=== PATIENT | male | born 1940 | race Caucasian/White ===

== ENCOUNTER 2020-05-02 11:52 | Emergency (ER) | payer OTHER ==
[~2020-05-02] VITALS: Ht 182.9 cm; Wt 78.5 kg
[~2020-05-02 11:52] MED LIST: LISHYD2012 PO
[2020-05-02 13:21] LABS: BASOPHILS ABSOLUTE AUTO 0.08 K/mm3 (0.00-0.23); BASOPHILS PERCENT AUTO 1 % (0-2); EOSINOPHILS PERCENT AUTO 5 % (0-6); Hematocrit 43.3 % (37.0-53.0); Hemoglobin 14.3 g/dL (13.5-17.5); IMMATURE GRAN ABSOLUTE AUTO 0.02 K/mm3 (0.00-0.10); IMMATURE GRAN PERCENT AUTO 0 % (0-1); LYMPHOCYTES ABSOLUTE AUTO 1.86 K/mm3 (0.84-5.20); LYMPHOCYTES PERCENT AUTO 30 % (21-46); MONOCYTES ABSOLUTE AUTO 0.52 K/mm3 (0.16-1.47); MONOCYTES PERCENT AUTO 9 % (4-13); Mean Corpuscular HGB 30.2 pg (26.0-34.0); Mean Corpuscular Volume 92 fL (80-100); Mean Platelet Volume 10.2 fL (9.1-12.4); NEUTROPHILS ABSOLUTE AUTO 3.34 K/mm3 (1.96-9.15); NEUTROPHILS PERCENT AUTO 55 % (41-73); Platelet Count 196 K/mm3 (150-400); RDW Coefficient Variation 12.5 % (11.7-14.2); RDW Standard Deviation 42.3 fL (35.1-46.3); Red Blood Cell Count 4.73 M/mm3 (4.30-5.90); White Blood Cell Count 6.12 K/mm3 (4.00-11.30)
[2020-05-02 13:37] LABS: Alanine Aminotransfer (ALT/SGP 15 U/L (12-78); Albumin, Blood 3.4 g/dL (3.4-5.0); Alk Phos 86 U/L (50-136); Anion Gap 4 mmol/L (6-16); Aspartate Aminotrans (AST/SGOT 17 U/L (12-37); Bilirubin, Total 0.4 mg/dL (0.1-1.0); Blood Urea Nitrogen 25 mg/dL (8-24); Bun/Creatinine Ratio 24.8 (12.0-20.0); CO2, Blood 27 mmol/L (21-32); Calcium, Blood 9.1 mg/dL (8.5-10.1); Chloride, Blood 111 mmol/L (98-108); Creatinine, Blood 1.01 mg/dL (0.60-1.20); Globulin, Blood 3.3 g/dL (2.2-4.0); Glomerular Filtration Rate >60 (60-); Glucose, Blood 83 mg/dL (70-99); Potassium, Blood 4.2 mmol/L (3.5-5.5); Sodium, Blood 142 mmol/L (136-145); Total Protein, Blood 6.7 g/dL (6.4-8.2); Troponin I <0.015 ng/mL (0.000-0.040)
== END 2020-05-02 15:17 | disposition home or self-care (01) ==
LOC: ER 11:52
PROVIDERS: Emergency Medicine
DX: R07.9 Chest pain, unspecified (principal); R10.31 Right lower quadrant pain; M25.512 Pain in left shoulder; M25.511 Pain in right shoulder; I10 Essential (primary) hypertension
CPT/HCPCS: 71046; 80053; 83880; 84484; 85025; 93005; 93010; 99285-25

== ENCOUNTER 2020-08-12 06:07 | Day surgery (SDC) | payer OTHER ==
[~2020-08-12] VITALS: Ht 182.9 cm; Wt 79.5 kg
[~2020-08-12 06:07] MED LIST changes: +ASPI81CH PO; +Crestor40 MG PO; +MELO7.5 PO; +Prinivil10 MG PO; +VITAMIN D310 MC5 PO
[2020-08-12] MEDS ORDERED: ELIQUIS5 MG PO (06:45)
--- NOTE | 2020-08-12 12:33 | NUR ---
PT RETURNED FROM 2 VIEW CHEST X RAYS IN RADIOLOGY, CONDITION STABLE. PT DENIES PAIN OR DISCOMFORT.
--- NOTE | 2020-08-12 14:13 | NUR ---
ACETAMINOPHEN 325 MG PO GIVEN FOR 5/10 INCISIONAL PAIN.
--- NOTE | 2020-08-12 14:45 | NUR ---
DISCHARGE INSTRUCTION GIVEN WITH VERBAL AND WRITTEN UNDERSTANDING.
--- NOTE | 2020-08-12 15:55 | NUR ---
VANCOMYCIN INFUSED. IV REMOVED INTACT. 2X2,COBAN AND MANUAL PRESSURE HELD.
--- NOTE | 2020-08-12 16:00 | NUR ---
DRESSED FOR DISCHARGE. SLING APPLIED TO LEFT ARM. DISCHARGED HOME VIA WHEELCHAIR. DRIVING. DISCHARGE INSTRUCTIONS GIVEN TO WELL. PATIENT APPEARS CONFUSED BY REPEATING QUESTIONS THROUGHOUT THE DAY AND FORGETTING PAIN MEDICINE WAS GIVEN.
== END 2020-08-12 16:00 | disposition home or self-care (01) ==
LOC: MHTC 06:07
DX: I49.5 Sick sinus syndrome (principal); I48.0 Paroxysmal atrial fibrillation; I44.1 Atrioventricular block, second degree; I10 Essential (primary) hypertension; I73.9 Peripheral vascular disease, unspecified; M19.90 Unspecified osteoarthritis, unspecified site; Z85.46 Personal history of malignant neoplasm of prostate; Z92.21 Personal history of antineoplastic chemotherapy; Z92.3 Personal history of irradiation; Z79.82 Long term (current) use of aspirin; Z88.2 Allergy status to sulfonamides; Z88.0 Allergy status to penicillin
CPT/HCPCS: 33208; 71046; 76937; 93005; 93010; 99152; 99153; A9270; C1785; C1894; C1898; J1644; J2250; J3010; J3370; J7030; J7040

== ENCOUNTER → 2021-01-11 | Outpatient (CLI) | payer OTHER ==
[~2021-01-11] MED LIST changes: +ELIQUIS5 MG PO
== END | disposition home or self-care (01) ==
LOC: LAB SHORT 07:57 → LAB 07:57
DX: C44.329 Squamous cell carcinoma of skin of other parts of face (principal)
CPT/HCPCS: 88305

== ENCOUNTER → 2021-01-18 | Outpatient (CLI) | payer OTHER | END | disposition home or self-care (01) | LOC: LAB SHORT 15:03 → LAB 15:03 | DX: N39.0 Urinary tract infection, site not specified (principal); R31.9 Hematuria, unspecified | CPT/HCPCS: 87086 ==

== ENCOUNTER 2021-06-26 12:32 | Observation (INO) | payer OTHER ==
[~2021-06-26] VITALS: Ht 182.9 cm; Wt 73.5 kg
[2021-06-26 13:38] LABS: BASOPHILS ABSOLUTE AUTO 0.06 K/mm3 (0.00-0.23); BASOPHILS PERCENT AUTO 1 % (0-2); EOSINOPHILS ABSOLUTE AUTO 0.06 K/mm3 (0.00-0.68); EOSINOPHILS PERCENT AUTO 1 % (0-6); Hemoglobin 14.4 g/dL (13.5-17.5); IMMATURE GRAN ABSOLUTE AUTO 0.06 K/mm3 (0.00-0.10); IMMATURE GRAN PERCENT AUTO 1 % (0-1); LYMPHOCYTES ABSOLUTE AUTO 1.41 K/mm3 (0.84-5.20); LYMPHOCYTES PERCENT AUTO 12 % (21-46); MONOCYTES ABSOLUTE AUTO 0.71 K/mm3 (0.16-1.47); MONOCYTES PERCENT AUTO 6 % (4-13); Mean Corpuscular HGB Conc 35.1 g/dL (31.5-36.5); Mean Corpuscular Volume 91 fL (80-100); Mean Platelet Volume 9.5 fL (9.1-12.4); NEUTROPHILS ABSOLUTE AUTO 9.22 K/mm3 (1.96-9.15); NEUTROPHILS PERCENT AUTO 80 % (41-73); Platelet Count 204 K/mm3 (150-400); RDW Standard Deviation 46.5 fL (35.1-46.3); White Blood Cell Count 11.52 K/mm3 (4.00-11.30)
[2021-06-26 14:16] LABS: Alanine Aminotransfer (ALT/SGP 16 U/L (12-78); Albumin, Blood 2.9 g/dL (3.4-5.0); Albumin/Globulin Ratio 0.8 (0.8-1.8); Alk Phos 82 U/L (50-136); Anion Gap 8 mmol/L (6-16); Aspartate Aminotrans (AST/SGOT 14 U/L (12-37); Bilirubin, Total 1.2 mg/dL (0.1-1.0); Blood Urea Nitrogen 20 mg/dL (8-24); Bun/Creatinine Ratio 20.1 (12.0-20.0); CO2, Blood 21 mmol/L (21-32); Calcium, Blood 9.7 mg/dL (8.5-10.1); Chloride, Blood 110 mmol/L (98-108); Creatinine, Blood 0.99 mg/dL (0.60-1.20); Globulin, Blood 3.8 g/dL (2.2-4.0); Glomerular Filtration Rate >60 (60-); Glucose, Blood 106 mg/dL (70-99); Potassium, Blood 3.9 mmol/L (3.5-5.5); Sodium, Blood 139 mmol/L (136-145); Total Protein, Blood 6.7 g/dL (6.4-8.2); Troponin I 0.022 ng/mL (0.000-0.040)
[2021-06-26 14:43] LABS: International Normalized Ratio 1.09; Prothrombin Time Results 11.4 Sec (9.7-11.5)
[2021-06-26 16:28] LABS: Source, Urine Clean Catch
[2021-06-26 16:44] LABS: Appearance, Urine Clear (Clear); Bilirubin, Urine Neg (Neg); Blood, Urine 3+ (Neg); Color, Urine Yellow (P-Yellow); Glucose Qualitative, Urine Neg (Neg); Ketones, Urine Neg (Neg); Leukocyte Esterase, Urine 3+ (Neg); Nitrite, Urine Pos (Neg); Protein, Urine 2+ (Neg); Urobilinogen, Urine NORM (Normal); pH, Urine 6.5 (5.0-8.0)
[2021-06-26 16:55] LABS: Amorphous Heavy (0-Heavy); Bacteria Many /hpf; Mucus Mod (0-Heavy); Squamous Epithelial Cells Few /hpf (Few)
[2021-06-26 16:56] LABS: Calcium Oxalate Crystals Rare /hpf; Yeast/Fungi Urine Rare /hpf
--- NOTE | 2021-06-27 03:11 | NUR ---
PT HAD INCONTINENT VOID, WARM WASH CLOTH PROVIDED AND FRESH PAIR OF BRIEFS. REPORTS PAIN, PRN FENTANYL GIVEN.
[2021-06-27 05:40] LABS: Hematocrit 36.9 % (37.0-53.0); Hemoglobin 12.6 g/dL (13.5-17.5); Mean Corpuscular HGB 31.6 pg (26.0-34.0); Mean Corpuscular HGB Conc 34.1 g/dL (31.5-36.5); Mean Corpuscular Volume 93 fL (80-100); Mean Platelet Volume 9.7 fL (9.1-12.4); Platelet Count 163 K/mm3 (150-400); RDW Coefficient Variation 14.2 % (11.7-14.2); RDW Standard Deviation 47.9 fL (35.1-46.3); Red Blood Cell Count 3.99 M/mm3 (4.30-5.90); White Blood Cell Count 8.28 K/mm3 (4.00-11.30)
[2021-06-27 05:41] LABS: Anion Gap 6 mmol/L (6-16); Blood Urea Nitrogen 22 mg/dL (8-24); Bun/Creatinine Ratio 25.2 (12.0-20.0); CO2, Blood 22 mmol/L (21-32); Calcium, Blood 8.7 mg/dL (8.5-10.1); Chloride, Blood 113 mmol/L (98-108); Creatinine, Blood 0.87 mg/dL (0.60-1.20); Glomerular Filtration Rate >60 (60-); Glucose, Blood 95 mg/dL (70-99); Potassium, Blood 3.7 mmol/L (3.5-5.5); Sodium, Blood 141 mmol/L (136-145)
--- NOTE | 2021-06-27 06:22 | NUR ---
SHIFT SUMMARY: PT IS ALERT AND ORIENTED. PT IS CALM AND COOPERATIVE WITH CARE. PT CALLS APPROPRIATELY. PT REPORTS PAIN ON SEVERAL OCCASIONS, MEDICATING PER EMAR. PT DENIES NAUSEA, VOMITING, AND SOB. NO ACUTE CHANGES OVERNIGHT. WILL CONTINUE TO MONITOR.
[2021-06-27] MEDS ORDERED: VITAMIN D5000 UNIT PO (15:48)
[2021-06-27] MEDS ORDERED: MOBIC15 MG PO (15:49)
[2021-06-27] MEDS ORDERED: TAMS.4ER PO (15:53)
--- NOTE | 2021-06-27 16:00 | NUR ---
PT ARRIVED TO ROOM 313 VIA GURNEY FROM ED. SLIDE SHEET TRANSFER TO BED. PAIN TO BACK FROM TRANSFER. SETTLED IN BED AND ADMIT STARTED. AT BEDSIDE. PT ABLE TO ANSWER QUESTIONS APPROPRIATELY.
[2021-06-27] MEDS ORDERED: MIRALAX11910 PO (16:49)
[2021-06-27] MEDS ORDERED: XTANDI40 MG PO (16:49)
--- NOTE | 2021-06-27 19:48 | NUR ---
SHIFT SUMMARY PT SEEMS A BIT CONFUSED TONIGHT. ABLE TO CARRY ON A CONVERSATION BUT THEN BECOMES DISORIENTED WHILE CONVERSATION CONTINUES. HEATING PAD PLACED ON BACK FOR COMFORT. APPEARS LESS PAINFUL SINCE PAIN MEDS AND HEATING PAD. MEDS CLARIFIED WITH MD AND CODE STATUS CHANGED PER HIS REQUEST.
--- NOTE | 2021-06-28 07:15 | NUR ---
SHIFT SUMMARY ASSUMED CARE AT 1900. NO ACUTE EVENTS OVERNIGHT. SCHEDULED MEDICATIONS GIVEN ORDERED FOR C/O BACK AND RIGHT LATERAL RIB PAIN-EFFECTIVE. RIGHT WRIST IV SITE BENIGN, IV FLUIDS INFUSING. TURNED AND REPOSITIONED. BED IN LOW POSITION WITH THE CALL LIGHT WITHIN EASY REACH. WILL CONTINUE TO MONITOR.
--- NOTE | 2021-06-28 18:39 | NUR ---
SHIFT SUMMARY: PAIN WELL CONTROLLED WHEN PT AT REST, BUT ESCALATES TO 10/10 WITH MOVEMENT. HAD BM THIS AFTERNOON. DECLINED TO TAKE ACYCLOVIR AFTER POSSIBLE SIDE EFFECTS DISCUSSED; STATED HE WOULD BE WILLING IF HE DEVELOPS SHINGLES. GETTING OOB TO CHAIR FOR MEALS AND IS AMBULATING TO BR WITH FWW AND 1 PERSON ASSIST. FORGETFUL AT TIMES. PT/OT WORKED WITH HIM TODAY. UNLIKELY TO BE ABLE TO GET UP STEPS TO HIS 5TH WHEEL RV, SO REHAB RECOMMENDED. WILL HAVE BONE SCAN TOMORROW AFTERNOON.
--- NOTE | 2021-06-29 06:42 | NUR ---
SHIFT SUMMARY ASSUMED CARE AT 1900. NO ACUTE EVENTS OVERNIGHT. PT MEDICATED FOR PAIN ORDERED WITH SCHEDULED ROXICODONE WITH GOOD EFFECT. PT OOB TO BATHROOM X1 ASSIST WITH FRONT ROLLING WALKER AND GAIT BELT. PT WITH INCONTINENT EPISODES. PT REMINDED NOT TO GET OOB BY HIMSELF BUT INSTEAD USE HIS CALL LIGHT TO CALL FOR ASSISTANCE AND WAIT FOR HELP (AT THE START OF THE SHIFT, PT WAS FOUND IN THE BATHROOM, HAVING A BM. PT HAD ALSO SOILED HIS CHUCKS/BACKSTER AND HIS DEPENDS. PT REPORTED THAT HE GOT OOB INDEPENDENTLY AND USED HIS WALKER TO GO INTO THE BATHROOM.) BED IS IN LOW POSITION WITH THE CALL LIGHT WITHIN EASY REACH. BED ALARM ACTIVATED. WILL CONTINUE TO MONITOR.
--- NOTE | 2021-06-29 19:26 | NUR ---
SHIFT SUMMARY: NO ACUTE EVENTS. REFUSED ALL A.M. BOWEL MEDS. GOT UP TO CHAIR FOR BREAKFAST AND LUNCH, IS USING BR, GETS UP WITH SBA AND FWW. DENIES PAIN AT REST, PAIN ESCALATES TO 9-10 WITH MOVEMENT. APPETTE IS POOR, LIKES COFFEE. BONE SCAN COMPLETED. THIS AUTHOR TOUCHED BASE WITH CARE MGMT ABOUT REHAB REFERRAL FOR THIS PT.
--- NOTE | 2021-06-30 05:24 | NUR ---
SHIFT SUMMARY ASSUMED CARE AT 1900. NO ACUTE EVENTS OVERNIGHT. PT MEDICATED ITH SCHEDULED PAIN MEDICATION WITH GOOD EFFECT. NO OTHER COMPLAINTS VOICED. BED IS IN LOW POSITION WITH THE CALL LIGHT WITHIN EASY REACH. BED ALARM ACTIVATED.
[2021-06-30] MEDS ORDERED: AMLO5 PO (11:37)
[2021-06-30] MEDS ORDERED: DOCU100 PO (11:37)
[2021-06-30] MEDS ORDERED: NICO21TP TOP (11:37)
[2021-06-30] MEDS ORDERED: OXYC5 PO (11:38)
[2021-06-30] MEDS ORDERED: Crestor40 MG PO (11:39)
[2021-06-30] MEDS ORDERED: SENN187 PO (11:39)
--- NOTE | 2021-06-30 14:07 | NUR ---
DISCHARGE NOTE PATIENT WAS DISCAHRGED AT 1230 THIS SHIFT VIA WHEELCHAIR WITH SPOUSE. PATIENT WAS GIVEN DISCHARGE INSTRUCTIONS. PATIENT VERBALIZED UNDERSTANDING OF INSTRUCTIONS. PATIENT GIVEN HARD COPY OF SCRIPT FOR PAIN MEDS. VSS NOTHING FURTHER TO REPORT.
== END 2021-06-30 12:30 | disposition home health service (06) ==
LOC: ER 12:32 → ERHOLD 12:33 → MEDS 06-27 15:22
PROVIDERS: Physician Assistant; Student in an Organized Health Care Education/Training Program; ADMIT Internal Medicine
DX: R07.81 Pleurodynia (principal); S22.050A Wedge compression fracture of T5-T6 vertebra, initial encounter for closed fracture; W10.9XXA Fall (on) (from) unspecified stairs and steps, initial encounter; I10 Essential (primary) hypertension; R77.8 Other specified abnormalities of plasma proteins; I48.0 Paroxysmal atrial fibrillation; C61 Malignant neoplasm of prostate; J44.9 Chronic obstructive pulmonary disease, unspecified; E44.0 Moderate protein-calorie malnutrition; E78.5 Hyperlipidemia, unspecified; F17.210 Nicotine dependence, cigarettes, uncomplicated; Z66 Do not resuscitate; Z79.01 Long term (current) use of anticoagulants; Z95.0 Presence of cardiac pacemaker; Z68.22 Body mass index [BMI] 22.0-22.9, adult
CPT/HCPCS: 36415; 70450; 71100; 71260; 72125; 74177; 78306; 80048; 80053; 81001; 83880; 84484; 85025; 85027; 85610; 85730; 87077; 87086; 87186; 93005; 93010; 94667; 94760; 96365-59; 96375; 97116; 97162; 97166; 97530; 97535; 99285-25; A9270; A9503; G0378; J0696; J3010; J7030; Q9967

== ENCOUNTER 2021-07-18 13:01 | Inpatient (IN) | payer OTHER ==
[~2021-07-18] VITALS: Ht 175.3 cm; Wt 67.8 kg
[~2021-07-18 13:01] MED LIST changes: +AMLO5 PO; +DOCU100 PO; +MIRALAX11910 PO; +MOBIC15 MG PO; +NICO21TP TOP; +OXYC5 PO; +SENN187 PO; +TAMS.4ER PO; +VITAMIN D5000 UNIT PO; +XTANDI40 MG PO
[2021-07-18 14:35] LABS: BASOPHILS ABSOLUTE AUTO 0.06 K/mm3 (0.00-0.23); BASOPHILS PERCENT AUTO 1 % (0-2); EOSINOPHILS ABSOLUTE AUTO 0.14 K/mm3 (0.00-0.68); EOSINOPHILS PERCENT AUTO 2 % (0-6); Hematocrit 38.4 % (37.0-53.0); Hemoglobin 13.1 g/dL (13.5-17.5); IMMATURE GRAN ABSOLUTE AUTO 0.07 K/mm3 (0.00-0.10); IMMATURE GRAN PERCENT AUTO 1 % (0-1); LYMPHOCYTES ABSOLUTE AUTO 2.07 K/mm3 (0.84-5.20); LYMPHOCYTES PERCENT AUTO 24 % (21-46); MONOCYTES ABSOLUTE AUTO 0.65 K/mm3 (0.16-1.47); MONOCYTES PERCENT AUTO 8 % (4-13); Mean Corpuscular HGB 31.9 pg (26.0-34.0); Mean Corpuscular HGB Conc 34.1 g/dL (31.5-36.5); Mean Corpuscular Volume 93 fL (80-100); Mean Platelet Volume 10.7 fL (9.1-12.4); NEUTROPHILS ABSOLUTE AUTO 5.48 K/mm3 (1.96-9.15); NEUTROPHILS PERCENT AUTO 65 % (41-73); Platelet Count 268 K/mm3 (150-400); RDW Coefficient Variation 13.4 % (11.7-14.2); Red Blood Cell Count 4.11 M/mm3 (4.30-5.90); White Blood Cell Count 8.47 K/mm3 (4.00-11.30)
[2021-07-18 14:44] LABS: Base Excess Venous -3.1 mmol/L; Bicarbonate Venous 21.3 mmol/L (24.0-30.0); PCO2 Venous 47.1 mmHg (38-42)
[2021-07-18 15:29] LABS: Source, Urine Peds U Bag
[2021-07-18 15:31] LABS: Bilirubin, Urine Neg (Neg); Blood, Urine 4+ (Neg); Glucose Qualitative, Urine Neg (Neg); Ketones, Urine 2+ (Neg); Leukocyte Esterase, Urine 3+ (Neg); Nitrite, Urine Pos (Neg); Protein, Urine 2+ (Neg); Urobilinogen, Urine NORM (Normal)
[2021-07-18 15:36] LABS: Appearance, Urine Hazy (Clear); Color, Urine Amber (P-Yellow)
[2021-07-18 15:38] LABS: Red Blood Cells, Urine 25-50 /hpf (0-2); Squamous Epithelial Cells Few /hpf (Few)
[2021-07-18 15:39] LABS: Amorphous Mod (0-Heavy); Bacteria Many /hpf; Granular Casts 0-2 /lpf (0); Hyaline Casts 0-2 /lpf (0-2); Mucus Light (0-Heavy)
[2021-07-18 15:50] LABS: Albumin, Blood 2.9 g/dL (3.4-5.0); Albumin/Globulin Ratio 0.9 (0.8-1.8); Bilirubin, Total 0.6 mg/dL (0.1-1.0); Bun/Creatinine Ratio 26.5 (12.0-20.0); Calcium, Blood 9.6 mg/dL (8.5-10.1); Creatinine, Blood 1.17 mg/dL (0.60-1.20); Globulin, Blood 3.3 g/dL (2.2-4.0); Potassium, Blood 3.5 mmol/L (3.5-5.5); Thyroid Stimulating Hormone 1.2 uIU/mL (0.360-4.800); Total Protein, Blood 6.2 g/dL (6.4-8.2)
--- NOTE | 2021-07-18 22:12 | NUR ---
ADMIT NOTE 81 YR OLD MALE ADMITTED TO FLOOR FROM THE ED WITH DX OF A FIB. RECENT EPISODES OF VERTIGO, AND CORRESPONDING FALLS. NO NOTED BRUISES. DENIED PAIN AND LOSS OF FEELING. MD ORDERED MED TELE, BUT PT REFUSED TO ALLOW IT TO BE PLACED ON HIM. ORIENTED TO USE OF CALL LIGHT. CALL LIGHT IN REACH. BED ALARM ON. INSTRUCTED TO USE CALL LIGHT PRIOR TO ATTEMPTS TO GET OUT OF BED.
--- NOTE | 2021-07-19 04:07 | NUR ---
COOK HELPER FRUIT SUMMARY REFUSED TO WEAR TELE MONITORING, EVEN THOUGH WAS ORDERED. VOICED ANGER WITH IV PUMP WHEN HE CONTINUOUSLY WOULD BEND HIS ARM (SHUTING OFF IV FLOW, CAUSING IT TO BEEEP). NURSE DISCUSSED WHY THE IV MACHINE BEEPED. ALTHOUGH HE CONTINUED TO REFUSE TELE, STOPPED BENDING ARM, IVF INFUSING. PT HAS BEEN RSETING QUIETLY WITH FEW INTERRUPTIONS SINCE. CHANGED WITH ASSISTANCE FOR INCONT OF URINE. CALL LIGHT IN REACH. NO S/S ACUTE DISTRESS.
[2021-07-19 05:21] LABS: BASOPHILS ABSOLUTE AUTO 0.05 K/mm3 (0.00-0.23); BASOPHILS PERCENT AUTO 1 % (0-2); EOSINOPHILS ABSOLUTE AUTO 0.12 K/mm3 (0.00-0.68); EOSINOPHILS PERCENT AUTO 2 % (0-6); Hematocrit 35.6 % (37.0-53.0); IMMATURE GRAN ABSOLUTE AUTO 0.04 K/mm3 (0.00-0.10); IMMATURE GRAN PERCENT AUTO 1 % (0-1); LYMPHOCYTES ABSOLUTE AUTO 1.67 K/mm3 (0.84-5.20); LYMPHOCYTES PERCENT AUTO 30 % (21-46); MONOCYTES ABSOLUTE AUTO 0.42 K/mm3 (0.16-1.47); MONOCYTES PERCENT AUTO 7 % (4-13); Mean Corpuscular HGB 31.5 pg (26.0-34.0); Mean Corpuscular HGB Conc 33.7 g/dL (31.5-36.5); Mean Corpuscular Volume 93 fL (80-100); Mean Platelet Volume 10.1 fL (9.1-12.4); NEUTROPHILS ABSOLUTE AUTO 3.37 K/mm3 (1.96-9.15); NEUTROPHILS PERCENT AUTO 59 % (41-73); Platelet Count 171 K/mm3 (150-400); RDW Coefficient Variation 13.2 % (11.7-14.2); Red Blood Cell Count 3.81 M/mm3 (4.30-5.90); White Blood Cell Count 5.67 K/mm3 (4.00-11.30)
[2021-07-19 05:40] LABS: Anion Gap 6 mmol/L (6-16); Blood Urea Nitrogen 27 mg/dL (8-24); Bun/Creatinine Ratio 28.2 (12.0-20.0); CO2, Blood 26 mmol/L (21-32); Calcium, Blood 9.4 mg/dL (8.5-10.1); Chloride, Blood 111 mmol/L (98-108); Creatinine, Blood 0.96 mg/dL (0.60-1.20); Glomerular Filtration Rate >60 (60-); Glucose, Blood 103 mg/dL (70-99); Potassium, Blood 3.4 mmol/L (3.5-5.5); Sodium, Blood 143 mmol/L (136-145)
--- NOTE | 2021-07-19 17:37 | NUR ---
PT IS A/OX3, PLEASANT AND COOPERATIVE. THE PT DENIED ANY CHEST PAIN T/O THE DAY. THE PT WAS MEDICATED FOR BACK PAIN X1 THIS AM. THE PT APPEARS TO BE BREATHING EASILY ON RA AT THIS TIME. THE PATIENTS ORTHO STATIC BP WAS TAKEN AND REPORTED TO DR. BOX. IV FLUIDS WERE ORDERED. PT WAS UP IN THE CHAIR TOFDAY FOR SEVERAL HOURS AND WORKED WITH THE PHYSICAL THERAPIST. CALL LIGHT IN REACH. WILL CONTINUE TO MONITOR AND ASSESS FOR CHANGES
--- NOTE | 2021-07-20 04:30 | NUR ---
PT RESTED IN BED THIS SHIFT. ORTHOSTATIC BP TO BE DONE THIS AM. WAS SUPPOSED TO D/C YESTERDAY, BUT ORTHO BP WAS POSITIVE AND STATED SHE COULD NOT CARE FOR HIM AT HOME. DAY RN LEFT A MESSAGE FOR HEAD WORKER TO CONTACT PT AND . LR INFUSING. PT OK'D BY PHYSICAL THERAPY TO D/C. CONTINUE POC.
[2021-07-20 05:56] LABS: Anion Gap 7 mmol/L (6-16); Blood Urea Nitrogen 17 mg/dL (8-24); Bun/Creatinine Ratio 19.4 (12.0-20.0); CO2, Blood 25 mmol/L (21-32); Calcium, Blood 9.5 mg/dL (8.5-10.1); Chloride, Blood 109 mmol/L (98-108); Creatinine, Blood 0.88 mg/dL (0.60-1.20); Glomerular Filtration Rate >60 (60-); Glucose, Blood 109 mg/dL (70-99); Potassium, Blood 3.3 mmol/L (3.5-5.5); Sodium, Blood 141 mmol/L (136-145)
--- NOTE | 2021-07-20 13:30 | NUR ---
ATTEMPTED TO ASSIT THE PT TO GET CHANGED AND READY FOR DISCHARGE. PT SEEMED CONFUSED AND UNABLE TO SIT UP UNSUPPORTED THE PT WAS NOT ABLE TO REMBER WHERE HE WAS AND UNABLE TO TAKE AN ORAL TABLET. DR. BOX WAS CALLED DISCHARGE HELD AND A HEAD CT ORDERED AND ALSO TELE.
--- NOTE | 2021-07-20 17:41 | NUR ---
PT IS A/OX3, PLEASANT AND COOPERATIVE. THE PT IS UP WITH MINIMAL ASSIST. THE PT APPEARS TO BE BREATHING EASILY ON RA. HOWEVER, THIS AFTERNOON THE PT HAD AN EPISODE OF CONFUSION AND WEAKNESS WAS UNABLE TO SUPPORT HIMSELF SITTING AND VERY WEAK AND UNSTEADY ON HIS FEET, ORIENTED TO SELF ONLY. THE PTS PLANNED DISCHARGE WAS HELD PT WAS PLACED ON TELE FOR FURTHER OBSERVATION. PT HAS IMPROVED. BACK TO HIS BASELINE THIS AM BEFORE THE INCIDENT. AT THIS TIME. THE PT IS UP IN THE CHAIR AT THIS TIME. CALL LIGHT IN REACH. WILL CONTINUE TO MONITOR AND ASSESS FOR CHANGES
--- NOTE | 2021-07-21 03:34 | NUR ---
SHIFT SUMMARY PT HAS HAD HYPERTENSION THIS SHIFT SBP IN THE 190'S, PT WAS ASYMPTOMATIC, DR. ELLIS CALLED AND NOTIFIED, AND HYDRALYZINE ORDERED AND WAS GIVEN WITH EFFECT. PT HAS DENIED PAIN OR NEEDS T/O SHIFT. NO CHANGES ON TELE. POSSIBLE DC TODAY. BED IN LOWEST POSITION, CALL LIGHT WITHIN REACH.
[2021-07-21 05:57] LABS: Anion Gap 6 mmol/L (6-16); Blood Urea Nitrogen 12 mg/dL (8-24); CO2, Blood 24 mmol/L (21-32); Calcium, Blood 9.4 mg/dL (8.5-10.1); Chloride, Blood 109 mmol/L (98-108); Creatinine, Blood 0.86 mg/dL (0.60-1.20); Glomerular Filtration Rate >60 (60-); Glucose, Blood 118 mg/dL (70-99); Potassium, Blood 3.5 mmol/L (3.5-5.5); Sodium, Blood 139 mmol/L (136-145)
[2021-07-21] MEDS ORDERED: CEFU500T30 PO ×2 (12:23)
--- NOTE | 2021-07-21 14:36 | NUR ---
DISCHARGE SUMMARY PT DISCHARGED TO HOME. PT LEFT ROOM VIA WHEELCHAIR WITH RN ESCORT AT 1406. IV DC'D AND BELONGINGS RETURNED. DISCHARGE INSTRUCTIONS DISCUSSED WITH PATIENT AND SPOUSE. ALL QUESTIONS ANSWERED. PT'S SPOUSE AGREES TO TAKE PT TO FOLLOW UP WITH PCP AND TO SCHEDULE THAT APPOINTMENT ON SATURDAY. MEDICATIONS DISCUSSED WELL. PT'S SPOUSE INSTRUCTED TO PUBLIC INFORMATION COORDINATOR PATIENT HOME MEDICATIONS AT PHARMACY AND TAKE PRESCRIBED.
== END 2021-07-21 14:06 | disposition home health service (06) | DRG 872 ==
LOC: ER 13:01 → MEDS 13:02
PROVIDERS: Emergency Medicine; Internal Medicine; ADMIT Family Medicine
DX: A41.9 Sepsis, unspecified organism (principal); N39.0 Urinary tract infection, site not specified; E87.4 Mixed disorder of acid-base balance; F03.90 Unspecified dementia, unspecified severity, without behavioral disturbance, psychotic disturbance, mood disturbance, and anxiety; Z53.29 Procedure and treatment not carried out because of patient's decision for other reasons; M41.9 Scoliosis, unspecified; I95.1 Orthostatic hypotension; Z66 Do not resuscitate; E87.6 Hypokalemia; N40.1 Benign prostatic hyperplasia with lower urinary tract symptoms; R33.8 Other retention of urine; I48.91 Unspecified atrial fibrillation; I10 Essential (primary) hypertension; Z85.46 Personal history of malignant neoplasm of prostate; Z95.0 Presence of cardiac pacemaker; Z87.891 Personal history of nicotine dependence; Z98.890 Other specified postprocedural states; Z88.0 Allergy status to penicillin; Z88.2 Allergy status to sulfonamides; Z79.01 Long term (current) use of anticoagulants; Z79.891 Long term (current) use of opiate analgesic; Z79.899 Other long term (current) drug therapy
CPT/HCPCS: 36415; 51798; 70450; 71045; 76770; 80048; 80053; 81001; 82803; 83605; 83690; 83735; 83880; 84443; 84484; 85025; 87040; 93005; 93010; 96374; 97110; 97162; 99285-25; A9270; G0378; J0360; J0696; J7030; J7120

== ENCOUNTER 2021-07-23 17:28 | Emergency (ER) | payer OTHER ==
[~2021-07-23] VITALS: Ht 175.3 cm; Wt 74.4 kg
[~2021-07-23 17:28] MED LIST changes: +CEFU500T30 PO
== END 2021-07-23 18:32 | disposition home or self-care (01) ==
LOC: ER 17:28
DX: Z00.00 Encounter for general adult medical examination without abnormal findings (principal); I10 Essential (primary) hypertension; Z88.0 Allergy status to penicillin; Z88.2 Allergy status to sulfonamides; Z79.899 Other long term (current) drug therapy; Z79.891 Long term (current) use of opiate analgesic; Z85.46 Personal history of malignant neoplasm of prostate
CPT/HCPCS: 99282

== ENCOUNTER 2021-08-23 09:17 | Inpatient (IN) | payer OTHER ==
[~2021-08-23] VITALS: Ht 175.3 cm; Wt 65.6 kg
[~2021-08-23 09:17] MED LIST changes: +PEPTO BISMOL PO
[2021-08-23 09:49] LABS: BASOPHILS ABSOLUTE AUTO 0.04 K/mm3 (0.00-0.23); BASOPHILS PERCENT AUTO 1 % (0-2); EOSINOPHILS ABSOLUTE AUTO 0.15 K/mm3 (0.00-0.68); EOSINOPHILS PERCENT AUTO 3 % (0-6); Hematocrit 39.7 % (37.0-53.0); Hemoglobin 13.8 g/dL (13.5-17.5); IMMATURE GRAN ABSOLUTE AUTO 0.01 K/mm3 (0.00-0.10); IMMATURE GRAN PERCENT AUTO 0 % (0-1); LYMPHOCYTES ABSOLUTE AUTO 1.69 K/mm3 (0.84-5.20); LYMPHOCYTES PERCENT AUTO 36 % (21-46); MONOCYTES ABSOLUTE AUTO 0.29 K/mm3 (0.16-1.47); MONOCYTES PERCENT AUTO 6 % (4-13); Mean Corpuscular HGB 32.7 pg (26.0-34.0); Mean Corpuscular HGB Conc 34.8 g/dL (31.5-36.5); Mean Corpuscular Volume 94 fL (80-100); Mean Platelet Volume 9.6 fL (9.1-12.4); NEUTROPHILS ABSOLUTE AUTO 2.53 K/mm3 (1.96-9.15); NEUTROPHILS PERCENT AUTO 54 % (41-73); Platelet Count 199 K/mm3 (150-400); RDW Coefficient Variation 14.2 % (11.7-14.2); RDW Standard Deviation 48.6 fL (35.1-46.3); Red Blood Cell Count 4.22 M/mm3 (4.30-5.90); White Blood Cell Count 4.71 K/mm3 (4.00-11.30)
[2021-08-23 10:19] LABS: Anion Gap 10 mmol/L (6-16); Blood Urea Nitrogen 12 mg/dL (8-24); Bun/Creatinine Ratio 12.3 (12.0-20.0); CO2, Blood 23 mmol/L (21-32); Calcium, Blood 9.8 mg/dL (8.5-10.1); Chloride, Blood 106 mmol/L (98-108); Creatinine, Blood 0.98 mg/dL (0.60-1.20); Glomerular Filtration Rate >60 (60-); Glucose, Blood 133 mg/dL (70-99); Magnesium, Blood 1.9 mg/dL (1.6-2.4); Potassium, Blood 3.6 mmol/L (3.5-5.5); Sodium, Blood 139 mmol/L (136-145)
--- NOTE | 2021-08-23 17:16 | NUR ---
ORTHOSTATIC VS LYING: B/P 167/95 HR 56 SITTING: B/P 108/86 HR 98 UNABLE TO TOLERATE STANDING DUE TO FEELING DIZZY
--- NOTE | 2021-08-24 05:21 | NUR ---
Patient is alert and oriented x4. Hard of hearing. No complains of pain. SOB. Ate dinner. Patient slept all night. Bed alarm on. Call light within reach.
[2021-08-24 05:53] LABS: Hematocrit 35.8 % (37.0-53.0); Hemoglobin 12.3 g/dL (13.5-17.5); Mean Corpuscular HGB 32.4 pg (26.0-34.0); Mean Corpuscular HGB Conc 34.4 g/dL (31.5-36.5); Mean Corpuscular Volume 94 fL (80-100); Mean Platelet Volume 9.7 fL (9.1-12.4); Platelet Count 173 K/mm3 (150-400); RDW Standard Deviation 47.9 fL (35.1-46.3)
[2021-08-24 06:09] LABS: Anion Gap 7 mmol/L (6-16); Blood Urea Nitrogen 12 mg/dL (8-24); Bun/Creatinine Ratio 14.6 (12.0-20.0); CO2, Blood 25 mmol/L (21-32); Calcium, Blood 9.2 mg/dL (8.5-10.1); Chloride, Blood 108 mmol/L (98-108); Creatinine, Blood 0.82 mg/dL (0.60-1.20); Glomerular Filtration Rate >60 (60-); Glucose, Blood 101 mg/dL (70-99); Potassium, Blood 3.5 mmol/L (3.5-5.5); Sodium, Blood 140 mmol/L (136-145)
--- NOTE | 2021-08-24 11:20 | NUR ---
NURSE NOTE ORTHOSTATICS DONE REQUESTED BY SITTING- BP: 110/71 PULSE: 98 STANDING- BP: 89/67 PULSE: 113
--- NOTE | 2021-08-24 16:26 | NUR ---
SHIFT SUMMARY PATIENT IS ALERT AND ORIENTATED X4. PATIENT IS PLEASENT AND AT TIMES FORGETFUL. PATIENT IS HARD OF HEARING. ORTHOSTATIC VITALS WERE DONE REQUESTED BY DR, REFER TO NURSE NOTE. VITAL SIGNS REVIEWED. PATIENT HAS HAD NO COMPLAINTS OF PAIN, NAUSEA, VOMITTING OR SOB THIS SHIFT. PATIENT REMAINS SLIGHTLY DIZZY WHEN STANDING UP. NO ACUTE EVENTS THIS SHIFT. CALL LIGHT IN PLACE. BED IN LOCKED AND LOWEST POSITION. WILL MONITOR UNTIL SHIFT CHANGE.
[2021-08-24 21:06] LABS: Source, Urine Clean Catch
[2021-08-24 21:10] LABS: Appearance, Urine Clear (Clear); Bilirubin, Urine Neg (Neg); Blood, Urine 1+ (Neg); Color, Urine Yellow (P-Yellow); Glucose Qualitative, Urine Neg (Neg); Ketones, Urine Neg (Neg); Leukocyte Esterase, Urine Neg (Neg); Nitrite, Urine Neg (Neg); Protein, Urine Neg (Neg); Urobilinogen, Urine NORM (Normal)
[2021-08-24 21:26] LABS: Bacteria Mod /hpf; Squamous Epithelial Cells Rare /hpf (Few)
[2021-08-24 21:27] LABS: Hyaline Casts 0-2 /lpf (0-2)
--- NOTE | 2021-08-25 05:44 | NUR ---
Patient is alert and oriented x3, sometimes forgetful. Hard of hearing. No complains of pain. Ambulates with one person assist. No SOB. UA collected last night. Patient is sleeping with call light within reach.
--- NOTE | 2021-08-25 15:51 | NUR ---
Upon chart review, noted pt's Code Status doesn't match H&P note, as pt's had requested his code status be DNR. I called pt's Ya, who confirms pt should have DNR status. She reports his POLST is on file with Dr. Sutton's office in [place]. Will request POLST via fax from them on saturday when they are open. Called Dr. Chatman to request updated code status. Pt is now DNR. After a long conversation with pt's Ya, the pt's overall condition became clearer. She reports he has been sleeping around 20 hours a day for the past few weeks. She also states he falls frequently, and she is unable to pick him up. She is also getting ready to have a knee replacement. She was tearful on the phone, expressing concern that she can no longer care for her . I offered phone numbers of resources, including [facility], and recommended [facility] also [facility]. I updated Dr. Chatman regarding the situation.
--- NOTE | 2021-08-25 17:25 | NUR ---
SHIFT SUMMARY PATIENT IS ALERT AND ORIENTATED X3. PATIENT IS OCCASIONALLY FORGETFUL. PATIENT WORKED WITH PT AND GOT DIZZY AND EXTREMETLY TIRED FROM WALKING A SHORT DISTANCE WITH PT. PATIENT HAS HAD NO COMPLAINTS OF SOB, NAUSEA, VOMITTING OR PAIN THIS SHIFT. PATIENT HAS HAD NO ACUTE EVENTS THIS SHIFT. PATIENTS CODE STATUS IS CHANGED TO DNR. BED IN LOCKED AND LOWEST POSITION. CALL LIGHT IN PLACE. WILL MONITOR UNTIL SHIFT CHANGE.
--- NOTE | 2021-08-26 05:55 | NUR ---
SHIFT SUMMARY Pt alert, oriented to person and situation, forgetful at times. Pt rested well, no c/o pain, pt reports some dizziness when up and out of bed. Pt incontinent of urine x 1 this shift, no reports of difficulty voiding at this time. VSS, anticipate d/c when medically stable and placement determined.
--- NOTE | 2021-08-26 18:06 | NUR ---
SHIFT SUMMARY PATIENT IS ALERT AND ORIENTED X3. PATIENT IS PLEASENT AND COOPERATIVE WITH CARE. PATIENT IS OCCASIONALLY FORGETFUL. PATIENT HAD ORTHOSTATIC VITALS DONE AND PATIENT FELT DIZZY WHEN STANDING. DR WAS INFORMED OF ORTHO VITALS. PATIENT HAS HAD NO ACUTE EVENTS THIS SHIFT. VITAL SIGNS REVIEWED. BED IN LOCKED AND LOWEST POSITION. CALL LIGHT IN PLACE. WILL MONITOR UNTIL SHIFT CHANGE.
--- NOTE | 2021-08-27 06:27 | NUR ---
SHIFT SUMMARY Pt rested well, no c/o pain or nausea, vss, skin intact. Bladder scan done pre-void with 433 ml noted. Pt unable to void lying down, assisted pt to stand and pt voided 50ml. Pt reports he has no urge to void and no discomfort. Pt was later incontinent of urine while sleeping. Bladder scan then noted to be 395 with no discomfort noted. No c/o dizziness when pt stood up. Anticipate d/c when medically stable and placement determined.
--- NOTE | 2021-08-27 17:18 | NUR ---
SHIFT SUMMARY PATIENT IS ALERT AND ORIENTED X3-4. OCCASIONAL CONFUSION AND FORGETFULNESS. HX OF DEMENTIA. PATIENT HAS BEEN PLEASENT AND COOPERATIVE WITH CARE THIS SHIFT. PATIENT HAS BEEN INCONTINENT OF BOWEL AND STOOL THIS SHIFT. PATIENT HAS HAD NO COMPLAINTS OF PAIN, NAUSEA, VOMITTING OR SOB THIS SHIFT. PATIENT HAS HAD NO ACUTE EVENTS THIS SHIFT. VITAL SIGNS REVIEWED. PATIENT IS A ONE PERSON ASSIST TO BATHROOM. BED IS IN LOWEST AND LOCKED POSITION. CALL LIGHT IN PLACE. WILL MONITOR UNTIL SHIFT CHANGE.
--- NOTE | 2021-08-28 15:58 | NUR ---
Pt is alert, pleasantly confused. He tells me today he is waiting for a bed at SNF for strengthening. His Ya continues to state she cannot care for the patient due to his frequent falls, increased confusion, and inability to care for himself. On saturday, H & P reflected these concerns. Today, the recommendation has changed to SNF then home. I did speak to pt's son Nahid and he reports he will be moving to [place] to live near and assist with his parent's needs. Palliative care will continue to follow pt.
--- NOTE | 2021-08-28 16:57 | NUR ---
PATIENT IS WAITING PLACEMENT AT SNF. HIS CINDI IN HIS ENZALUTAMIDE (PROSTATE CANCER MEDICATION) TODAY. PHARMACY VERIFIED AND HE RECIEVED HIS FIRST AND SECOND DOSE THIS SHIFT. HE HAD NO SYNCOPE TODAY. PATIENT DENIES HAVING THIS SINCE BEING HOSPITALIZED. HIS MEDICATION LISTED ABOVE HAS 'DIZZYNESS' LISTED A SIDE EFFECT- HE HASN'T TAKEN IN HOSPITAL UP TO TODAY. HE REPORTS A COUGH WITH THICK YELLOW SPUTUM, THAT IS WORSE AFTER EATING. PATIENT REPORTED SOME RIGHT LOWER ABDOMINAL PAIN THIS AM, WITH NO FURTHER COMPLAINTS THROUGH OUT THE SHIFT. IV PATENT. NO OTHER CONCERNS.
--- NOTE | 2021-08-29 06:15 | NUR ---
SHIFT SUMMARY Patient alert and oriented, forgetfull at time. He is plesant and cooperative with care. He is now waiting on placement for detention facility. His gait is unsteady and he is very weak. He slept well throughout the night. We will continue to monitor patient until report given to the oncoming nurse.
[2021-08-29 06:49] LABS: BASOPHILS ABSOLUTE AUTO 0.04 K/mm3 (0.00-0.23); BASOPHILS PERCENT AUTO 1 % (0-2); EOSINOPHILS ABSOLUTE AUTO 0.23 K/mm3 (0.00-0.68); EOSINOPHILS PERCENT AUTO 4 % (0-6); Hematocrit 36.8 % (37.0-53.0); Hemoglobin 12.5 g/dL (13.5-17.5); IMMATURE GRAN ABSOLUTE AUTO 0.01 K/mm3 (0.00-0.10); IMMATURE GRAN PERCENT AUTO 0 % (0-1); LYMPHOCYTES ABSOLUTE AUTO 1.65 K/mm3 (0.84-5.20); LYMPHOCYTES PERCENT AUTO 29 % (21-46); MONOCYTES ABSOLUTE AUTO 0.49 K/mm3 (0.16-1.47); MONOCYTES PERCENT AUTO 9 % (4-13); Mean Corpuscular HGB 32.4 pg (26.0-34.0); Mean Corpuscular Volume 95 fL (80-100); Mean Platelet Volume 9.6 fL (9.1-12.4); NEUTROPHILS ABSOLUTE AUTO 3.36 K/mm3 (1.96-9.15); NEUTROPHILS PERCENT AUTO 58 % (41-73); Platelet Count 176 K/mm3 (150-400); RDW Standard Deviation 48.2 fL (35.1-46.3); Red Blood Cell Count 3.86 M/mm3 (4.30-5.90); White Blood Cell Count 5.78 K/mm3 (4.00-11.30)
[2021-08-29 07:08] LABS: Anion Gap 5 mmol/L (6-16); Blood Urea Nitrogen 21 mg/dL (8-24); Bun/Creatinine Ratio 24.9 (12.0-20.0); CO2, Blood 26 mmol/L (21-32); Calcium, Blood 9.5 mg/dL (8.5-10.1); Chloride, Blood 109 mmol/L (98-108); Creatinine, Blood 0.85 mg/dL (0.60-1.20); Glomerular Filtration Rate >60 (60-); Glucose, Blood 102 mg/dL (70-99); Potassium, Blood 3.5 mmol/L (3.5-5.5); Sodium, Blood 140 mmol/L (136-145)
--- NOTE | 2021-08-29 10:07 | NUR ---
PATIENT HAD ORTHOSTATIC VITALS DONE. PATIENT HAD NORMAL VITAL SIGNS BUT EXPERIANCED DIZZYNESS WHEN STANDING. PATIENT HAD NO FURTHER COMPLAINTS JUST ANXIOUS TO DC.
--- NOTE | 2021-08-29 15:57 | NUR ---
DR. BOX NOTIFIED OF PATIENT HAVING HIGHER BP'S 130/91 AND TO ADJUST MIDODRINE DOSE NEEDED. PROVIDER WILL PLACE ORDERS.
--- NOTE | 2021-08-30 10:27 | NUR ---
PATIENT WAS A AND O 4X. PATIENT TODAY WASNT DIZZY. PATIENT GOT UP 1P WALKER MINMAL ASSIST. PATIENT JUST ANXIOUSLY AWAITING SNF PLACEMENT. MIDODRINE HLD DUE TO HTN.
[2021-08-31 04:31] LABS: BASOPHILS ABSOLUTE AUTO 0.05 K/mm3 (0.00-0.23); BASOPHILS PERCENT AUTO 1 % (0-2); EOSINOPHILS ABSOLUTE AUTO 0.24 K/mm3 (0.00-0.68); EOSINOPHILS PERCENT AUTO 5 % (0-6); Hematocrit 35.6 % (37.0-53.0); Hemoglobin 12.5 g/dL (13.5-17.5); IMMATURE GRAN ABSOLUTE AUTO 0.01 K/mm3 (0.00-0.10); IMMATURE GRAN PERCENT AUTO 0 % (0-1); LYMPHOCYTES ABSOLUTE AUTO 2.28 K/mm3 (0.84-5.20); LYMPHOCYTES PERCENT AUTO 45 % (21-46); MONOCYTES ABSOLUTE AUTO 0.43 K/mm3 (0.16-1.47); MONOCYTES PERCENT AUTO 9 % (4-13); Mean Corpuscular HGB 32.4 pg (26.0-34.0); Mean Corpuscular HGB Conc 35.1 g/dL (31.5-36.5); Mean Corpuscular Volume 92 fL (80-100); Mean Platelet Volume 9.7 fL (9.1-12.4); NEUTROPHILS ABSOLUTE AUTO 2.06 K/mm3 (1.96-9.15); NEUTROPHILS PERCENT AUTO 41 % (41-73); Platelet Count 184 K/mm3 (150-400); RDW Coefficient Variation 13.7 % (11.7-14.2); RDW Standard Deviation 46.3 fL (35.1-46.3); Red Blood Cell Count 3.86 M/mm3 (4.30-5.90); White Blood Cell Count 5.07 K/mm3 (4.00-11.30)
[2021-08-31 04:52] LABS: Anion Gap 5 mmol/L (6-16); Blood Urea Nitrogen 17 mg/dL (8-24); Bun/Creatinine Ratio 20.7 (12.0-20.0); CO2, Blood 27 mmol/L (21-32); Calcium, Blood 9.3 mg/dL (8.5-10.1); Chloride, Blood 108 mmol/L (98-108); Creatinine, Blood 0.82 mg/dL (0.60-1.20); Glomerular Filtration Rate >60 (60-); Glucose, Blood 96 mg/dL (70-99); Potassium, Blood 3.4 mmol/L (3.5-5.5); Sodium, Blood 140 mmol/L (136-145)
--- NOTE | 2021-08-31 06:04 | NUR ---
Patient is alert and oriented x4. Hard of hearing. Complains of back pain, prn pain medication given. Snakcs provided. Patient has no signs of SOB, no signs of distress. Call light within reach.
--- NOTE | 2021-08-31 16:18 | NUR ---
DAY SHIFT SUMMARY 81 YR OLD MALE ADMITED WITH SYNCOPE AND COLLAPSE. PT ON RA, A/O X3-4, ABLE TO AMBULATE WITH WALKER/GAITBELT/1 ASSIST. PT TOOK SHOWER TODAY AND CAME BACK TO SIT IN CHAIR AT BEDSIDE, HE THEN FELT HE NEEDED TO GO TO THE BATHROOM FOR A BM. PT UNABLE TO MAKE IT TO THE BATHROOM BEFORE HE BECAME TIRED. HE THEN STOPPED AND LEANED HIS HEAD ON THE WALL AND WAS UNABLE TO CONTINUE TO AMBULATE, THE SHOWER CHAIR WAS PULLED OUT FOR THE PT TO SIT ON. A WHEELCHAIR WAS THEN BROUGHT IN TO GET THE PT BACK TO BED WITH. CALL LIGHT IS WITHIN REACH AND PT IS ABLE TO CALL APPROPRIATELY. ONCE PT WAS ABLE TO GET BACK TO BED HE BEGAN TO FEEL BETTER. HE BELIEVES HE "OVER DID IT" WITH THE SHOWER.
--- NOTE | 2021-09-01 05:47 | NUR ---
Patinet is alert and oriented x3, forgetful. Bedrest. Incontinent in urine and bowel. No complains of pain. No SOB. Patient is pleasant and follows commands. Snacks given. Call light within reach.
--- NOTE | 2021-09-01 16:51 | NUR ---
DAY SHIFT SUMMARY 81 YR OLD MALE PT ADMITTED WITH SYNCOPE AND COLLAPSE. REPORTED PAIN IN PACEMAKER ON LEFT SIDE OF CHEST SHOOTING SHARPLY INTO RT SIDE OF CHEST. EPISODE LASTED AROUND 10 MIN. MD MADE AWARE. PT'S CAME TO VISIT AND VOICE CONCERNS OF HER ABILITY TO CARE FOR THE PT AT HOME, THEY LIVE IN A 5TH WHEEL WITH STAIRS, AND PT IS NOT ABLE TO GET AROUND ON HIS OWN. PT HAS ROOM WITH [facility] THAT WILL BE AVAILABLE ON SATURDAY. CALL LIGHT WITHIN REACH AND ABLE TO CALL APPROPRIATELY. PT IS CONTINENT-INCONTINENT.
--- NOTE | 2021-09-02 05:54 | NUR ---
SHIFT SUMMARY: PATIENT HAS NO COMPLAINTS THIS SHIFT. 2100 DOSE OF MIDODRINE WAS HELD DUE TO BP 143/74. PO FLIUDS ARE ENCORAGED PER MD ORDER, INC. OF URINE. BED ALARM IS ON.
--- NOTE | 2021-09-02 18:29 | NUR ---
SHIFT SUMMARY: PATIENT ALERT AND ORIENT X 3, ABLE TO VERBALIZE NEEDS. DENIES PAIN TO PACEMAKER SITE OR OTHER PAIN THROUGHOUT THE SHIFT. CALL PLACED TO TO REQUEST OWN MEDICATION, XTANDI, IS OK FOR PATIENT TO BE OUT OF THIS MEDICATION FOR FEW DOSES UNTIL SATURDAY WHEN PATIENT WILL BE DISCHARGE. 17:30 POST VOID BLADDER SCAN SHOWED [address] HENNING NOTIFIED. ORDER RECEIVED TO INSERTE A BERTRAND CATHETER. BERTRAND CATHETER ON, PATIENT TOLERATED WELL, 500 ML OF JORGE CLEAR URINE OBTAINED.
[2021-09-02 19:38] LABS: Source, Urine Foley catheter
[2021-09-02 19:45] LABS: Bilirubin, Urine Neg (Neg); Blood, Urine 5+ (Neg); Glucose Qualitative, Urine Neg (Neg); Ketones, Urine 1+ (Neg); Leukocyte Esterase, Urine 1+ (Neg); Nitrite, Urine Neg (Neg); Protein, Urine 3+ (Neg); Urobilinogen, Urine 1+ (Normal)
[2021-09-02 19:53] LABS: Appearance, Urine Cloudy (Clear); Color, Urine Pale Yellow (P-Yellow)
[2021-09-02 19:54] LABS: Bacteria Many /hpf; Mucus Heavy (0-Heavy); Red Blood Cells, Urine 25-50 /hpf (0-2); Squamous Epithelial Cells Rare /hpf (Few)
[2021-09-02 19:55] LABS: Calcium Oxalate Crystals Rare /hpf; Granular Casts 0-2 /lpf (0); Hyaline Casts 0-2 /lpf (0-2); Yeast/Fungi Urine Few /hpf
--- NOTE | 2021-09-03 06:00 | NUR ---
SHIFT SUMMARY: UA WAS SENT PER PROTOCOL S/P BERTRAND PLACEMENT. CULTURE IS INDICATED BUT NO WBC ELEVATION OBSERVED. DR MARROQUIN IS NOTIFIED, NO NEW ORDERS. VSS, PATIENT REPORTED BACK PAIN THIS SHIFT, TYLENOL WAS GIVEN WITH GOOD EFFECT.
--- NOTE | 2021-09-03 17:29 | NUR ---
SHIFT SUMMARY: PATIENT ALERT AND ORIENT X 3, ABLE TO VERBALIZE NEEDS. BERTRAND CATHETER INTACT, DRAINING YELLOW DARK URINE, ENCOUTAGING FLUIDS. SBP > 110, MIDODRINE HELD. DENIES DENIES PAIN TO PACEMAKER SITE OR OTHER PAIN THROUGHOUT THE SHIFT. LAST DOSE OF OWN MED, XTANDI, ADMINSTRATED AT 13:02, PATIENT'S SPOUSE OK FOR PATIENT TO BE OUT OF THIS MED FOR FEW DOSES, UNTIL SATURDAY WHEN PATIENT WILL BE DISCHARGE. NO ACUTE CHANGES TO REPORT AT THIS TIME.
--- NOTE | 2021-09-04 06:48 | NUR ---
SHIFT SUMMARY: NO ACUTE CHANGES. TYLENOL WAS GIVEN FOR BACK PAIN WITH GOOD EFFECT. VSSJERZY IS DRAINING AN DON URINE. PO FLIUDS ARE ENCOURAGED.
[2021-09-04] MEDS ORDERED: B-121000 MC3 PO (12:00)
[2021-09-04] MEDS ORDERED: MIDO5 PO (12:05)
[2021-09-04] MEDS ORDERED: NICO21TP TOP (12:06)
--- NOTE | 2021-09-04 18:03 | NUR ---
PATIENT DISCHARGED PRIOR TO LUNCH TODAY TO [facility]. SPOUSE EDILBERTO DROVE THIS PATIENT IN HER POV. FELTON HAD BERTRAND CATHETER IN PLACE FOR URINARY RETENTION. THIS RN SPOKE WITH AND SHE SAID TO LEAVE IT INPLACE AT DISCHARGE. SPOUSE WILL BRING THE PAITENTS HOME MEDICATIONS TO [facility]. ALL QUESTIONS AT [place] ARE ADDRESSED AND DEPARTMENT COORDINATOR DID MEET WITH PATIENT AND SPOUSE PRIOR TO HIM LEAVING.
== END 2021-09-04 12:45 | disposition home health service (06) | DRG 57 ==
LOC: ER 09:17 → MEDS 09:19 → ENPENDDIS 09-04 11:28 → MEDS 09-04 12:45
PROVIDERS: Family Medicine; Internal Medicine; Student in an Organized Health Care Education/Training Program; ADMIT Internal Medicine
DX: G90.3 Multi-system degeneration of the autonomic nervous system (principal); I47.2 Ventricular tachycardia; I48.20 Chronic atrial fibrillation, unspecified; N40.1 Benign prostatic hyperplasia with lower urinary tract symptoms; Z66 Do not resuscitate; R33.8 Other retention of urine; E53.8 Deficiency of other specified B group vitamins; C61 Malignant neoplasm of prostate; I49.1 Atrial premature depolarization; E87.6 Hypokalemia; I10 Essential (primary) hypertension; I48.0 Paroxysmal atrial fibrillation; E86.0 Dehydration; F03.90 Unspecified dementia, unspecified severity, without behavioral disturbance, psychotic disturbance, mood disturbance, and anxiety; Z79.01 Long term (current) use of anticoagulants; Z79.899 Other long term (current) drug therapy; Z87.891 Personal history of nicotine dependence; Z88.0 Allergy status to penicillin; Z88.2 Allergy status to sulfonamides; Z88.1 Allergy status to other antibiotic agents; Z95.0 Presence of cardiac pacemaker
CPT/HCPCS: 36415; 80048; 81001; 82607; 82746; 83735; 84443; 84484; 85025; 85027; 87086; 93005; 93010; 93306; 93880; 97110; 97116; 97129; 97162; 97165; 97530; 97535; 99285-25; A9270; G0378; J3420; J7030; J7120